=== PATIENT | male | born 1970 ===

== ENCOUNTER 2024-05-30 17:33 | Inpatient (IN) | payer OTHER ==
[~2024-05-30] VITALS: Ht 165.1 cm; Wt 90.8 kg
[2024-05-30] MEDS ORDERED: HYDROmorphone HCl/Pf 1MG SYR IV ONE ×2 (17:45→20:00)
[2024-05-30] MEDS ORDERED: NS 1,000 ML IV SCH (17:45)
[2024-05-30 18:27] LABS: International Normalized Ratio 1.17; Prothrombin Time Results 12.4 Sec (9.7-11.5)
[2024-05-30 18:46] LABS: Bilirubin, Direct 2.4 mg/dL (0.0-0.3)
[2024-05-30] MEDS ORDERED: Ciprofloxacin 400MG/D5 200ML 200 ML IV ONE (19:55)
[2024-05-30] MEDS ORDERED: MetroNIDAZOLE 500MG/NS 100 ml 100 ML IV ONE (19:55)
[2024-05-30] MEDS ORDERED: Lactated Ringer's 1,000 ML IV SCH (21:15)
[2024-05-30] MEDS ORDERED: Metoprolol Tartrate 1 MG/ML 5 ML VIAL IV ONE (23:15)
[2024-05-30] MEDS ORDERED: HydrALAZINE HCl 20 MG / ML 1ML Vial IV PRN (23:45)
[2024-05-30] MEDS ORDERED: Loperamide HCl 2 MG Cap PO PRN (23:45)
[2024-05-30] MEDS ORDERED: NS 1,000 ML IV ONE (23:45)
[2024-05-30] MEDS ORDERED: Ondansetron HCl 2 MG / ML 2ML Vial IV PRN (23:45)
[2024-05-30] MEDS ORDERED: FLU VACC TS2024-25(6MOS UP)/PF 45 MCG/0.5 ML SYRINGE IM ONE (23:50)
[2024-05-30] MEDS ORDERED: FentaNYL Citrate 50 MCG/ML 2 ML Injection IV PRN (23:50)
[2024-05-30] MEDS ORDERED: OxyCODONE HCL 5 MG TAB PO PRN (23:50)
[2024-05-31] VITALS (8 sets, daily range): BP systolic 119–162; BP diastolic 90–106
[2024-05-31] MEDS ORDERED: Enoxaparin 40 MG/0.4 ML SYR SC SCH (00:08)
[2024-05-31] MEDS ORDERED: CefTRIAXone Sodium 1,000 MG in NS 100 ML IV SCH (00:12)
[2024-05-31] MEDS ORDERED: Albumin (Human) 25gm/100ml 100 ML IV ONE (00:30)
[2024-05-31 00:33] LABS: International Normalized Ratio 1.29; Prothrombin Time Results 13.5 Sec (9.7-11.5)
[2024-05-31] MEDS ORDERED: LORazepam 2 MG/ML 1ML Injection IV PRN (00:35)
[2024-05-31] MEDS ORDERED: ChlordiazePOXIDE 25 MG Cap PO PRN (00:35)
[2024-05-31] MEDS ORDERED: MetroNIDAZOLE 500MG/NS 100 ml 100 ML IV SCH (02:00)
--- NOTE | 2024-05-31 04:00 | NUR ---
THIS IS A 53 YEAR OLD URDU SPEAKING PT ADMITTED FOR COLITITS. PT ALERT AND ORIENTED, HIS SON IS AT BEDSIDE TO ASSIST WITH TRANSLATION. PT REFUSED USE OF TRANSLATION PHONE AND WAS ABLE TO ANSWER MOST QUESTIONS WITHOUT HIS SONS HELP. PT C/O ABDOMINAL PAIN, PRN PAIN PILL GIVEN, PT HAS ELEVATED TEMP, FR. CREWS NOTIFIED AND NEW ORDER FOR TYLENOL NOTED. PTS B/P REMAINS ELEVATED. DISUSSED PARAMETERS WITH DR. CREWS, STATES TO KEEP PARAMETERS ORDERED AT THIS TIME. DR. CREWS ALSO NOTIFIED OF PTS ELEVATED HEARTRATE, STATES CONTINUE TO MONITOR. PT AND HIS SON ORIENTED TO ROOM, CALL LIGHT, BED ALARM, ETC. WILL CONTINUE TO MONITOR
[2024-05-31 04:21] LABS: Hematocrit 44.1 % (37.0-53.0); Mean Corpuscular HGB 35.5 pg (26.0-34.0); Mean Corpuscular Volume 105 fL (80-100); Mean Platelet Volume 12.6 fL (9.1-12.4); NRBC ABSOLUTE 0.02 K/mm3 (0.00-0.02); NRBC Auto 0.6 /100 WBC (0.0-0.2); RDW Coefficient Variation 14.6 % (11.7-14.2); RDW Standard Deviation 57.1 fL (35.1-46.3); Red Blood Cell Count 4.22 M/mm3 (4.30-5.90)
[2024-05-31 04:37] LABS: Albumin, Blood 2.4 g/dL (3.4-5.0); Albumin/Globulin Ratio 0.6 (0.8-1.8); Bilirubin, Total 4.4 mg/dL (0.1-1.0); Bun/Creatinine Ratio 22.3 (12.0-20.0); Creatinine, Blood 0.58 mg/dL (0.60-1.20); Globulin, Blood 4.3 g/dL (2.2-4.0); Potassium, Blood 3.5 mmol/L (3.5-5.5); Total Protein, Blood 6.7 g/dL (6.4-8.2)
[2024-05-31 04:47] LABS: Platelet Count 48 K/mm3 (150-400)
[2024-05-31] MEDS ORDERED: Acetaminophen 325 MG TABLET PO PRN (05:00)
[2024-05-31 05:10] LABS: BAND PERCENT MAN 35 % (0-8); BASOPHILS PERCENT MAN 0 % (0-2); EOSINOPHILS ABSOLUTE MAN 0.03 K/mm3 (0.00-0.68); EOSINOPHILS PERCENT MAN 1 % (0-6); LYMPHOCYTES ABSOLUTE MAN 0.17 K/mm3 (0.84-5.20); LYMPHOCYTES PERCENT MAN 5 % (21-46); METAMYELOCYTE ABSOLUTE MAN 0.17 K/mm3 (0.00-0.00); METAMYELOCYTE PERCENT MAN 5 % (0-0); MONOCYTES ABSOLUTE MAN 0.17 K/mm3 (0.16-1.47); MONOCYTES PERCENT MAN 5 % (4-13); MYELOCYTE ABSOLUTE MAN 0.17 K/mm3 (0.00-0.00); MYELOCYTE PERCENT MAN 5 % (0-0); NEUTROPHILS ABSOLUTE MAN 2.76 K/mm3 (1.96-9.15); SEG NEUTROPHILS PERCENT MAN 44 % (41-73); TOTAL CELLS COUNTED 100
--- NOTE | 2024-05-31 06:27 | NUR ---
PT REMAINS ALERT WITH NO AGITATION OR S/S OF ALCOHOL WITHDRAWEL NOTED. COVID,FLU,RSV, AND GI PANAL SENT TO LAB. PT REMAINS TACHYCARDIC. WILL CONTINUE TO MONITOR. PT STATES RELIEF FROM PAIN AFTER PAIN MED, WILL CONTINUE TO MONITOR, PTS SON REMAINS AT BEDSIDE
[2024-05-31 06:49] LABS: Influenza A, PCR NEGATIVE (NEGATIVE); Influenza B, PCR NEGATIVE (NEGATIVE); Resp Syncytial Virus, PCR NEGATIVE (NEGATIVE); SARS-Cov-2 (COVID-19) PCR, MMC NEGATIVE (NEGATIVE)
[2024-05-31] MEDS ORDERED: NS 1,000 ML IV SCH (07:45)
[2024-05-31] MEDS ORDERED: NS 1,000 ML IV ONE ×2 (07:45→13:05)
[2024-05-31 07:57] LABS: Campylobacter Sp Not Detected (NOT DETECT); Cryptosporidium Not Detected (NOT DETECT); Cyclospora Cayetanensis Not Detected (NOT DETECT); E. Coli O157 Not Detected (NOT DETECT); Enteroaggregative E. coli-EAEC Not Detected (NOT DETECT); Enteropathogenic E. coli-EPEC Not Detected (NOT DETECT); Enterotoxigenic E. coli-ETEC Not Detected (NOT DETECT); Plesiomonas Shigelloides Not Detected (NOT DETECT); Salmonella Sp Not Detected (NOT DETECT); Shiga Toxin-prod E. coli-STEC Not Detected (NOT DETECT); Shigella/Enteroin E. coli-EIEC Not Detected (NOT DETECT); Vibrio Cholerae Not Detected (NOT DETECT); Vibrio Sp Not Detected (NOT DETECT); Yersinia Enterocolitica Not Detected (NOT DETECT)
[2024-05-31 07:58] LABS: Adenovirus F 40/41 Not Detected (NOT DETECT); Astrovirus Not Detected (NOT DETECT); Entamoeba Histolytica Not Detected (NOT DETECT); Giardia Lamblia Not Detected (NOT DETECT); Norovirus GI/GII Not Detected (NOT DETECT); Rotavirus A Not Detected (NOT DETECT); Sapovirus Not Detected (NOT DETECT)
[2024-05-31] MEDS ORDERED: Polyethylene Glycol 3350 17 gm PO PRN (08:10)
[2024-05-31] MEDS ORDERED: Morphine Sulfate 4 MG/1 ML Injection IV PRN (08:10)
[2024-05-31] MEDS ORDERED: Docusate Sodium/Senna 1 Tab PO PRN (08:10)
[2024-05-31] MEDS ORDERED: HydrALAZINE HCl 20 MG / ML 1ML Vial IV PRN (08:40)
[2024-05-31] MEDS ORDERED: Losartan Potassium 25 MG Tab PO SCH (09:00)
--- NOTE | 2024-05-31 10:53 | NUR ---
AM NOTE: DR. BHAKTA PRESENT AT BEDSIDE FOR AM BEDSIDE SHIFT REPORT. PATIENT ALERT AND ORIENTED. X4. GREENLANDIC SPEAKING WITH SOME [place] ISLANDER. SENIOR BUSINESS DEVELOPMENT ANALYST PHONE AT BEDSIDE, ALTHOUGH PATIENT REFUSED TO USE. SON AT BEDSIDE WHO IS [place] ISLANDER/GREENLANDIC SPEAKING. SBA TO HELP MANAGE CORDS. PATIENT MOVING SELF IN BED. DENIES PAIN AT THIS TIME. CIWA SCORE 0 THIS AM. TELE SHOWING ST WITH HR 100-130'S. DENIES CHEST PAIN/PRESSURE/PALPITATIONS. SBP 140'S. PO LOSARTAN GIVEN THIS AM. IV FLUIDS INFUSING PER EMAR. IV ABX INFUSED. NO EDEMA NOTED. ON ROOM AIR, LUNG SOUNDS CLEAR AND DIM IN BASES. DENIES SOB/COUGH. SATING 90-94%. EVEN AND UNLABORED RESPIRATIONS. BOWEL TONES PRESENT. ABDOMIN DISTENDED AND FIRM. DENIES PAIN AT THIS TIME, BUT STATES IT COMES AND GOES. RECENTLY GIVEN PO PAIN MED FROM NOC SHIFT. NPO AT THIS TIME, PATIENT AND FAMILY EDUCATED. UP TO BATHROOM WITH SBA. EDUCATED ON INTAKE AND OUTPUT MEASUREMENTS. BOWEL MOVEMENT X1 THIS AM. URINE KAY IN COLOR. DENIES NAUSEA. COMPLAINS OF MOUTH BEING DRY. MOIST SPONGE PROVIDED FOR MOUTH. DR. BHAKTA AT BEDSIDE THIS MORNING, THIS RN PRESENT FOR MD ROUNDING. DR. BHAKTA UPDATED ON AM LACTIC RESULT AND TEMPORAL TEMP OF 100.4 VIA PHONE. PLAN FOR FLUIDS. DR. RODRIGUEZ CALLED BY THIS AM TO DISCUSS FLUIDS PER DR. BHAKTA RECOMMENDATION. FLUIDS TO CONTINUE AT 75ML/HR AT THIS TIME FOR A TOTAL OF 4 BAGS COUNTING CURRENT BAG THAT IS HUNG. BLOOD CULTURES POSITIVE X2, CALLED INTO DR. RODRIGUEZ. PLAN TO WAIT FOR SENSITIVITY AND LACTIC BLOOD DRAW AT 1200. FAMILY REMAINS AT BEDSIDE. CALL LIGHT IN REACH. IV FLUIDS INFUSING. DENIES NEEDS AT THIS TIME.
--- NOTE | 2024-05-31 12:04 | NUR ---
DR. HBAKTA BACK TO BEDSIDE, THIS RN AND FAMILY PRESENT. PATIENT RECENTLY REPORTED 3/10 ABDOMINAL PAIN AND REQUESTING PAIN PILL. MEDICATED PER EMAR. UP TO BATHROOM WITH SBA. 2 LOOSE BOWEL MOVEMENTS THIS AM, NO BLOOD OBSERVED. MINIMAL URINE OUTPUT, USING URNAL. KAY IN COLOR. AFTERNOON VITAL SIGNS STABLE WITH 100.5 TEMPORAL TEMP, HR 120'S. CIWA SCORE 0. CALL LIGHT IN REACH.
--- NOTE | 2024-05-31 13:16 | NUR ---
AFTERNOON LACTIC LAB LEVEL ELEVATED, THIS RN ON BREAK. ROLL OVER LOADER PLACED CALL TO DR. RODRIGUEZ TO UPDATE. PLAN FOR 1L NORMAL SALINE BOLUS AND CONTINUE MAINTENCE FLUID POST BOLUS. VITAL SIGNS TAKEN AGAIN. PATIENT UP IN CHAIR AT BEDSIDE. DENIES PAIN. BOLUS INFUSING AT THIS TIME. PATIENT AND FAMILY AT BEDSIDE UPDATED ON PLAN.
[2024-05-31] MEDS ORDERED: Meropenem 2,000 MG in NS 250 ML IV SCH (15:00)
--- NOTE | 2024-05-31 15:24 | NUR ---
DR. RODRIGUEZ CALLED TO UPDATE ON INTAKE/OUTPUT STATUS. PATIENT HAS ONLY HAD 250ML URINE OUTPUT SINCE ADMISSION TO PCU. STRICT OUTPUT MAINTAINED WITH HAT/URINAL USE. PATIENT COMPLIANT WITH ALLOWING STAFF TO MEASURE OUTPUT. REMAINS NPO. BLADDER SCAN DONE SHOWING 137ML IN BLADDER. PATIENT DENIES FEELING RETENTION. PLAN TO REDRAW LABS AT THIS TIME. DR. RODRIGUEZ TO PLACE ORDERS. CIWA SCORE 1 AT THIS TIME DUE TO SOME SLIGHT ANXIETY. VITAL SIGNS STABLE. TEMPORAL TEMP READING 99.4 AND HR REMAINS IN THE 120'S. FAMILY REMAINS AT BEDSIDE.
[2024-05-31 16:19] LABS: Bun/Creatinine Ratio 24.4 (12.0-20.0); Calcium, Blood 7.5 mg/dL (8.5-10.1); Creatinine, Blood 0.94 mg/dL (0.60-1.20); Potassium, Blood 3.8 mmol/L (3.5-5.5)
--- NOTE | 2024-05-31 16:54 | NUR ---
1600 LACTIC AND BMP RESULTS CALLED IN TO DR. RODRIGUEZ, NO NEW ORDERS AT THIS TIME. CONTINUE CURRENT FLUIDS. PLAN FOR LACTIC ACID LAB DRAW AT 1999.
--- NOTE | 2024-05-31 18:32 | NUR ---
SHIFT SUMMARY: PATIENT REMAINS ALERT AND ORIENTED. FAMILY REMAINS AT BEDSIDE THROUGHOUT SHIFT. CONTINUES TO DENY USE OF CONCRETE BUCKET UNLOADER PHONE THROUGHOUT SHIFT. UP WITH SBA TO BATHROOM TO HELP MANAGE CORDS. CIWA SCORES 0-1 FOR DAY SHIFT. TELE CONTINUES TO SHOW ST WITHHR 100-130'S. SBP 130'S. DENIES CHEST PAIN/PRESSURE/PALPITATIONS. BOWEL TONES PRESENT. INTERMIT ABDOMINAL PAIN RATED 2-3 THROUGHOUT SHIFT. MEDICATED X1 FOR PAIN WITH GOOD RELIEF. MULTIPLE LOOSE STOOLS GREEN/BROWN IN COLOR. NO BLOOD NOTED. MINIMAL KAY COLORED URINE, DR. RODRIGUEZ AWARE, SEE LAST NOTE. REMAINS NPO. STRICT INTAKE AND OUTPUT. NS CONTINUES TO INFUSE PER EMAR. IV ABX INFUSED. CALL LIGHT IN REACH. SITTING UP IN CHAIR AT THIS TIME.
--- NOTE | 2024-05-31 21:58 | NUR ---
SPOKE WITH DR. CREWS REGARDING CONTINUING SINUS TACH AND MOST RECENT LACTIC WHICH WAS UP FROM PREVIOUS. DISCUSSED SEVERAL OPTIONS, DR. CREWS ULTIMATELY DECIDING TO STICK WITH CURRENT PLAN OF CARE WITH NS RUNNING AND REPEAT LACTIC ORDERED WITH MORNING LABS. CONTINUING TO MONITOR.
[2024-06-01] VITALS (11 sets, daily range): BP systolic 145–178; BP diastolic 81–109
[2024-06-01 03:33] LABS: Hematocrit 43.4 % (37.0-53.0); Mean Corpuscular HGB 36.4 pg (26.0-34.0); Mean Corpuscular HGB Conc 34.6 g/dL (31.5-36.5); Mean Corpuscular Volume 105 fL (80-100); Mean Platelet Volume 12.4 fL (9.1-12.4); RDW Standard Deviation 59.1 fL (35.1-46.3); Red Blood Cell Count 4.12 M/mm3 (4.30-5.90); White Blood Cell Count 14.45 K/mm3 (4.00-11.30)
[2024-06-01 03:57] LABS: Platelet Count 43 K/mm3 (150-400)
[2024-06-01 03:59] LABS: BAND PERCENT MAN 34 % (0-8); BASOPHILS PERCENT MAN 0 % (0-2); EOSINOPHILS PERCENT MAN 0 % (0-6); LYMPHOCYTES ABSOLUTE MAN 0.72 K/mm3 (0.84-5.20); LYMPHOCYTES PERCENT MAN 5 % (21-46); METAMYELOCYTE ABSOLUTE MAN 0.72 K/mm3 (0.00-0.00); METAMYELOCYTE PERCENT MAN 5 % (0-0); MONOCYTES ABSOLUTE MAN 0.43 K/mm3 (0.16-1.47); MONOCYTES PERCENT MAN 3 % (4-13); NEUTROPHILS ABSOLUTE MAN 12.57 K/mm3 (1.96-9.15); SEG NEUTROPHILS PERCENT MAN 53 % (41-73); TOTAL CELLS COUNTED 100
[2024-06-01 04:00] LABS: Magnesium, Blood 1.3 mg/dL (1.6-2.4)
[2024-06-01 04:01] LABS: Albumin, Blood 2.3 g/dL (3.4-5.0); Albumin/Globulin Ratio 0.5 (0.8-1.8); Bilirubin, Total 4.3 mg/dL (0.1-1.0); Bun/Creatinine Ratio 32.4 (12.0-20.0); Calcium, Blood 8.2 mg/dL (8.5-10.1); Creatinine, Blood 1.11 mg/dL (0.60-1.20); Globulin, Blood 4.4 g/dL (2.2-4.0); Phosphorus, Blood 2.5 mg/dL (2.5-4.9); Potassium, Blood 3.7 mmol/L (3.5-5.5); Total Protein, Blood 6.7 g/dL (6.4-8.2)
[2024-06-01] MEDS ORDERED: Magnesium Sulf 2 GM/Water 50ML 50 ML IV SCH ×2 (04:45)
[2024-06-01] MEDS ORDERED: METF500 PO (07:50)
[2024-06-01] MEDS ORDERED: Lovastatin20 MG PO (07:50)
[2024-06-01] MEDS ORDERED: Losartan Potassium 50 MG Tab PO ONE (08:35)
--- NOTE | 2024-06-01 09:00 | NUR ---
AM NOTE: PATIENT REMAINS ALERT AND ORIENTED. FINANCIAL RETIREMENT PLAN SPECIALIST PHONE REFUSED AGAIN THIS MORNING. FAMILY REMAINS AT BEDSIDE. SBA TO HELP MANAGE CORDS. PERRLA. CIWA SCORING 1-2 DUE TO SOME ANXIETY. TELE SHOWING SINUS TACH WITH HR 100-130'S. DENIES CHEST PAIN/PRESSURE/PALPITATIONS. SBP 150-170'S. INCREASED PO LOSARTAN DOSE GIVEN THIS MORNING AND PATIENT/FAMILY EDUCATED. IV SALINE INFUSING PER EMAR WELL MAG REPLACED THIS AM AND IV ABX. NO EDEMA NOTED. ON ROOM AIR, NEEDING SOME OXYGEN DURING NOC SHIFT. SATING 94-95% ON ROOM AIR. EVEN AND UNLABORED RESPIRATIONS. LUNG SOUNDS CLEAR. DENIES SOB/COUGH. BOWEL TONES PRESENT. DENIES ABDOMINAL PAIN. ABDOMIN CONTINUES TO BE DISTENDED. LOOSE GREEN STOOLS. STRICT INTAKE AND OUTPUT. PATIENT ADVANCED TO CLEAR LIQUID DIET. USING HATS IN TOILET TO MEASURE URINE. PATIENT AND FAMILY EDUCATED ON ALL INTAKE AND OUTPUT MEASUREMENTS. DR. RODRIGUEZ TO BEDSIDE THIS AM AND THIS RN UPDATED ON BLOOD CULTURE SENSITIVITY RESULTS AT 0902. CALL LIGHT IN REACH. DENIES NEEDS AT THIS TIME. FAMILY REMAINS AT BEDSIDE.
[2024-06-01] MEDS ORDERED: CefTRIAXone Sodium 2,000 MG in NS 100 ML IV SCH (13:00)
[2024-06-01] MEDS ORDERED: AmLODIPine Besylate 5 MG Tab PO SCH (16:35)
--- NOTE | 2024-06-01 17:20 | NUR ---
DR. RODRIGUEZ CALLED TO UPDATE ON BLOOD PRESSURE. BLOOD PRESSURE READING 169/105 WITH HR 120'S. PATIENT DENIES CARDIAC SYMPTOMS. THIS RN GAVE 10MG IV HYDRALAZINE. BLOOD PRESSURE 160/97 POST 10MG IV HYDRALAZINE ADMINISTRATION. ORDERS FROM DR. RODRIGUEZ TO GIVE ADDITIONAL 10MG IV HYDRALAZINE, AMLODIPINE 10MG PO NOW AND THEN DAILY AND LACTIC ACID LAB DRAW. ORDERS. IN PLACE. ADDITIONAL 10MG IV HYDRALAZINE GIVEN AND PATIENT BLOOD PRESSURE READING 157/100. NORMAL SALINE CONTINUES TO INFUSE PER EMAR. TOLERATING PO DIET OF CLEAR LIQUIDS. DENIES ABDOMINAL PAIN. TEMPORAL TEMP 99.5. AT BEDSIDE. PENDING LACTIC ACID. CALL LIGHT IN REACH.
--- NOTE | 2024-06-01 18:14 | NUR ---
SHIFT SUMMARY: PATIENT REMAINS ALERT AND ORIENTED. CIWA SCORES 0-2 THROUGHOUT. THIS RN SCORED 2 DUE TO ANXIETY. PATIENT STATES HE IS NERVOUS AT TIMES WITH DOCTORS AND STAFF. THIS RN CONTINUED TO OFFER GAS DERRICK OPERATOR PHONE THROUHGOUT SHIFT AND PATIENT DENIED. FAMILY REMAINED AT BEDSIDE. DENIED PAIN THROUGHOUT SHIFT. UP TO BATHROOM WITH SBA TO HELP MANAGE CORDS. TELE CONTINUES TO READ SINUS TACH WITH HR 120'S. DENIES CHEST PAIN/PRESSURE/PALPITATIONS. SEE PREVIOUS NOTE REGARDING ELEVATED BLOOD PRESSURE. IV FLUIDS INFUSING PER EMAR. NO EDEMA NOTED. ON ROOM AIR SATING 90-95% WHEN AWAKE. NEEDING UP TO 2L WHEN SLEEPING. DENIES SOB/COUGH. CONTINUES TO HAVE LOOSE GREEN STOOLS THROUGHOUT SHIFT. URINE REMAINS KAY. THIS RN UPDATED DR. RODRIGUEZ ON INTAKE/OUTPUT STATUS. URINE OUTPUT IMPROVED FROM YESTERDAY SHIFT, 900ML OUTPUT THUS FAR. BLADDER SCAN COMPLETED SHOWING 148 POST VOID. DENIES ABDOMINAL PAIN/NAUSEA. ON CLEAR LIQUID DIET. PATIENT REQUESTING SUGAR FREE OPTIONS, THIS RN UPDATED CLEAR LIQUID DIET WITH SUGAR FREE MODIFICATION. FAMILY REMAINS AT BEDSIDE. CALL LIGHT IN REACH. DENIES NEEDS AT THIS TIME.
--- NOTE | 2024-06-01 19:21 | NUR ---
UPON REASSESSMENT PATIENT POINTING AT WINDOW AND SAYING "LOOK IT'S FUNNY, ANIMALS". THIS RN ASKED TO USE HIGH SCHOOL MATH TUTOR PHONE AND WAS CONNECTED WITH MOISTURE METER OPERATOR. PATIENT SAYING HE IS SEEING THE WINDOW MOVE AND THE ANIMALS DANCE AROUND IT. ASKING IF HE CAN GET UP TO GET CLOSE AND TOUCH THE ANIMALS. THIS RN PREFORMED CIWA WITH PATIENT SCORING 9. THIS RN THEN DISCUSSED ALCOHOL WITHDRAWL SYMPTOMS, SAFETY CONCERNS, BED ALARM USE, ALCOHOL WITHDRAWL MEDICATIONS, VITAL SIGNS AND FALL RISK WITH PATIENT AND USING MOISTURE METER OPERATOR PHONE. PATIENT SEEMING VERY CONFUSED CONTINUEING TO TALK ABOUT WINDOW AND DISCUSS HOW FUNNY IT LOOKS WITH THE ANIMALS. AT BEDSIDE VERBALIZES EDUCATION SURROUNDING ALCOHOL WITHDRAWL AND SAFETY CONCERNS. THIS RN MEDICATED PATIENT WITH 2MG OF ATIVAN IV. REPORTED OFF TO [facility] NURSE WASSERMAN. DAUGHTER TO COME IN AND SIT WITH PATIENT THIS EVENING. BED ALARM IN PLACE. REMAINS AT BEDSIDE.
--- NOTE | 2024-06-01 19:38 | NUR ---
ASSESSED PATIENT WITH interpretor [phone] [phone]
[2024-06-01] MEDS ORDERED: LORazepam 2 MG/ML 1ML Injection IV PRN (20:10)
--- NOTE | 2024-06-01 20:11 | NUR ---
CHARGE NOTIFIED OF CIWA, PT BEING MOVED TO ROOM CLOSER TO NURSES STATION. PROVIDER AWARE
--- NOTE | 2024-06-01 21:40 | NUR ---
TO BEDSIDE. PT PLACED ON ETCO2 AND QTC MONITORING TUNRED ON. PT BREATHING 24RR/MINUTE, ON 3LNC. ETCO2 31-35. QTC 479.
[2024-06-01] MEDS ORDERED: ChlordiazePOXIDE 25 MG Cap PO PRN ×2 (22:25)
[2024-06-01] MEDS ORDERED: Haloperidol Lactate Inj. 5 MG/ML Injection IM PRN (22:25)
[2024-06-02] MEDS ORDERED: Haloperidol Lactate Inj. 5 MG/ML Injection IV PRN (00:30)
--- NOTE | 2024-06-02 01:03 | NUR ---
SHIFT SUMMARY PT'S CIWAS HAVE BEEN HIGH 25. PT RECIEVED HALDOL FOR PERSISTENT HALLUCINATIONS ALONG WITH ATIVAN. PT NO LONGER COOPERATIVE WITH PO ADMINISTRATION. PT BECOMING MORE PARANOID SHIFT PROGRESSES AND IS TRYING TO HIDE HALLUCINATIONS. FAMILY AT BEDSIDE, PARTICIPATING IN CARE. RESPIRATIONS HAVE NOT GONE UNDER 22 BREATHS PER MINUTE SO FAR THIS SHIFT. ETCO2 AND QTC MONITORING REMAINS IN PLACE. PT REPORTS SOME ABD PAIN AND HAS HYPERACTIVE BOWEL TONES IN ALL QUADRANTS. PT REMAINS TACHYCARDIC 120'S-140'S.
[2024-06-02 03:35] VITALS: BP 108/93
[2024-06-02 04:06] LABS: Hematocrit 38.3 % (37.0-53.0); Hemoglobin 13.5 g/dL (13.5-17.5); Mean Corpuscular HGB 36.5 pg (26.0-34.0); Mean Corpuscular HGB Conc 35.2 g/dL (31.5-36.5); Mean Corpuscular Volume 104 fL (80-100); Mean Platelet Volume 12.3 fL (9.1-12.4); RDW Coefficient Variation 14.9 % (11.7-14.2); RDW Standard Deviation 57.4 fL (35.1-46.3); White Blood Cell Count 14.85 K/mm3 (4.00-11.30)
[2024-06-02 04:16] LABS: Platelet Count 49 K/mm3 (150-400)
[2024-06-02 04:29] LABS: Albumin, Blood 2.1 g/dL (3.4-5.0); Albumin/Globulin Ratio 0.5 (0.8-1.8); Bun/Creatinine Ratio 41.8 (12.0-20.0); Calcium, Blood 7.9 mg/dL (8.5-10.1); Creatinine, Blood 1.1 mg/dL (0.60-1.20); Globulin, Blood 4.2 g/dL (2.2-4.0); Magnesium, Blood 2.5 mg/dL (1.6-2.4); Phosphorus, Blood 2.8 mg/dL (2.5-4.9); Potassium, Blood 3.3 mmol/L (3.5-5.5); Total Protein, Blood 6.3 g/dL (6.4-8.2)
[2024-06-02 04:30] LABS: BAND PERCENT MAN 21 % (0-8); BASOPHILS PERCENT MAN 0 % (0-2); EOSINOPHILS PERCENT MAN 0 % (0-6); LYMPHOCYTES ABSOLUTE MAN 0.14 K/mm3 (0.84-5.20); LYMPHOCYTES PERCENT MAN 1 % (21-46); MONOCYTES ABSOLUTE MAN 1.33 K/mm3 (0.16-1.47); MONOCYTES PERCENT MAN 9 % (4-13); NEUTROPHILS ABSOLUTE MAN 13.36 K/mm3 (1.96-9.15); SEG NEUTROPHILS PERCENT MAN 69 % (41-73); TOTAL CELLS COUNTED 100
[2024-06-02] MEDS ORDERED: Potassium Chloride 40 MEQ in NS 250 ML IV ONE (06:00)
[2024-06-02 08:44] VITALS: BP 166/96
[2024-06-02] MEDS ORDERED: Furosemide 10 MG / ML 2ML Vial IV ONE (09:00)
[2024-06-02] MEDS ORDERED: Losartan Potassium 50 MG Tab PO SCH ×2 (09:00)
[2024-06-02 11:23] VITALS: BP 156/105
--- NOTE | 2024-06-02 12:18 | NUR ---
UPDATE PT ALERT AND FOLLOWING DIRECTIONS AT THIS TIME. DAUGHTER AT BEDSIDE. DAUGHTER STATES PATIENT IS COMMUNICATING BETTER THAN HE WAS THIS AM. PT MORE RELAXED AND NO LONGER RESTLESS OR PULLING AT LINES. PT ABLE TO SWALLOW WATER WITHOUT DIFFICULTY OR COUGHING. COUGH IS CLEAR WHEN ASKED TO COUGH. PT MEDICATED WITH LIBRIUM PER EMAR.
[2024-06-02 14:47] LABS: HAPTOGLOBIN <10 mg/dL (30-200)
[2024-06-02 16:05] VITALS: BP 167/96
--- NOTE | 2024-06-02 17:01 | NUR ---
SHIFT SUMMARY PT CONTINUES TO WITHDRAWAL, SEE CIWA CHARTING. FAMILY AT BEDSIDE ALL SHIFT TO HELP TRANSLATE PATIENT DOES NOT WANT TO USE HEAT SEAL OPERATOR PHONE. PT REMAINS ON 3L NC WITH SATS >90%. ETCO2 MONITORING HAS CONSISTANTLY BEEN ABOUT 30. PT HAS BEEN INCONTINENT OF URINE AND BOWEL THIS SHIFT. MALE PUREWICK DEVICE IN PLACE AND ATTENDS. WILL REPORT OFF TO ONCOMING RN
[2024-06-02 20:35] VITALS: BP 154/95
[2024-06-03] VITALS (7 sets, daily range): BP systolic 129–171; BP diastolic 87–108
--- NOTE | 2024-06-03 04:31 | NUR ---
SHIFT SUMMARY. PATIENT IS A&OX3. DAIGHTER IN AT BEDSIDE AND ABLE TO TRANSLATE FOR PATIENT. PATIENT DID UNDERSTAND SIMPLE COMMANDS AND INSTRUCTION FOR VITAL SIGNS; ORAL TEMPERATURE OBTAINED TEMPORAL READING HIGH. PATIENT WOULD LIKE A BED BATH OR PREFERABLY A SHOWER TODAY. MEDICATED WITH LIBRIUM AND ATIVAN X1 THIS SHIFT AT THIS POINT. PATIENT HAD 3 SCANT AMOUNTS OF LOOSE BM IN ATTENDS; NO S/S OF C-DIFF NOTED. PATIENTS DAUGHTER REPORTS THAT PATIENT HAD NOT REALLY ATE MUCH THE COUPLE DAYS PRIOR TO ADMISSION. PATIENT HYPERTENSIVE THIS SHIFT; PRN ANTIHYPERTENSIVE GIVEN PER ORDER. BED IS LOCKED IN THE LOWEST POSITION WITH CALL LIGHT IN REACH. DAUGHTER AT BEDSIDE T/O NIGHT. CARE IS ONGOING. BED IS LOCKED IN THE LOWEST POSITION WITH CALL LIGHT IN REACH. CARE IS ONGOING.
[2024-06-03 05:06] LABS: Hematocrit 38.8 % (37.0-53.0); Hemoglobin 13.8 g/dL (13.5-17.5); Mean Corpuscular HGB Conc 35.6 g/dL (31.5-36.5); Mean Corpuscular Volume 101 fL (80-100); Mean Platelet Volume 12.7 fL (9.1-12.4); NRBC ABSOLUTE 0.02 K/mm3 (0.00-0.02); NRBC Auto 0.2 /100 WBC (0.0-0.2); Platelet Count 53 K/mm3 (150-400); RDW Coefficient Variation 15.2 % (11.7-14.2); RDW Standard Deviation 56.6 fL (35.1-46.3); Red Blood Cell Count 3.83 M/mm3 (4.30-5.90); White Blood Cell Count 9.71 K/mm3 (4.00-11.30)
[2024-06-03 05:36] LABS: Albumin, Blood 2.1 g/dL (3.4-5.0); Albumin/Globulin Ratio 0.5 (0.8-1.8); Bilirubin, Total 3.9 mg/dL (0.1-1.0); Bun/Creatinine Ratio 52.6 (12.0-20.0); Calcium, Blood 8.2 mg/dL (8.5-10.1); Creatinine, Blood 0.82 mg/dL (0.60-1.20); Globulin, Blood 4.5 g/dL (2.2-4.0); Magnesium, Blood 2.5 mg/dL (1.6-2.4); Phosphorus, Blood 1.9 mg/dL (2.5-4.9); Potassium, Blood 3.3 mmol/L (3.5-5.5); Total Protein, Blood 6.6 g/dL (6.4-8.2)
[2024-06-03] MEDS ORDERED: Multivitamins 1 Tab PO SCH (09:00)
[2024-06-03] MEDS ORDERED: Thiamine HCl 100 MG Tab PO SCH (09:00)
--- NOTE | 2024-06-03 11:19 | NUR ---
The pt is oriented to self, family, place (hospital) but not to city/state. He says that he is in his hometown in [place]. Family is at bedside, assisting with reorientation and reassurance of the patient. His daughter and his are here now. CIWA score was 6 and he was given librium 25 mg this morning for hallucinations and mild confusion. He is calm and cooperative. He is tachypneic but denies dyspnea. No wheezing, no crackles noted on auscultation anterior and posterior chest. He is also tachycardic, rate 103-118 bpm with minimal activity in bed. Blood pressure is stable and he is no longer requiring any supplemental oxygen. Spo2 93% on room air at this time. He tolerated clear liquid diet this morning, and it has been advanced to full liquid which he has started slowly and so far is tolerating well.
--- NOTE | 2024-06-03 13:18 | NUR ---
Pt requested OOB to chair. Max 2 staff assist with gait belt. PT remains confused; chair alarm is on. Pt is very weak. His is at bedside, assisting him. Ceftriaxone is infusing IV right forearm. Febrile, 101.1 after administration of Tylenol for fever 100.8
--- NOTE | 2024-06-03 15:35 | NUR ---
The pt is alert, minimally conversant but cooperative, calm and the daughters at bedside state that he seems the best now than he has been since admission. Questions answered about plan of care and current treatment.
[2024-06-03] MEDS ORDERED: Sodium Phosphate Mono/Dibasic 250 MG Tab PO SCH (17:00)
[2024-06-04 00:27] VITALS: BP 157/104
[2024-06-04 03:57] LABS: Hematocrit 39.1 % (37.0-53.0); Hemoglobin 13.7 g/dL (13.5-17.5); Mean Corpuscular HGB 35.4 pg (26.0-34.0); Mean Corpuscular Volume 101 fL (80-100); Mean Platelet Volume 12.4 fL (9.1-12.4); Platelet Count 55 K/mm3 (150-400); RDW Coefficient Variation 15.1 % (11.7-14.2); RDW Standard Deviation 56.6 fL (35.1-46.3); Red Blood Cell Count 3.87 M/mm3 (4.30-5.90); White Blood Cell Count 9.95 K/mm3 (4.00-11.30)
[2024-06-04 04:31] LABS: Anion Gap 9 mmol/L (3-11); Blood Urea Nitrogen 42 mg/dL (8-24); Bun/Creatinine Ratio 53.2 (12.0-20.0); CO2, Blood 21 mmol/L (21-32); Calcium, Blood 7.9 mg/dL (8.5-10.1); Chloride, Blood 105 mmol/L (98-108); Creatinine, Blood 0.79 mg/dL (0.60-1.20); Glomerular Filtration Rate 106 (60-); Glucose, Blood 106 mg/dL (70-99); Potassium, Blood 3.2 mmol/L (3.5-5.5); Sodium, Blood 132 mmol/L (136-145)
[2024-06-04 04:47] VITALS: BP 136/83
--- NOTE | 2024-06-04 06:34 | NUR ---
PT MOSTLY STABLE THROUGHOUT THE SHIFT, NO LARGE EVENTS OCCURING. PT DID HAVE CIWA OF 8 AT BEGINNING OF SHIFT WHICH IMPROVED AFTER PO LIBRIUM X1. PT DOES HAVE SOME ANXIETY BUT IS CALM AND COOPERATIVE. PT HAD GOOD URINARY OUTPUT BY PUREWICK. PT ALSO HAD BMX2- LOOSE,BROWN. PT INCONTINENT TO BOTH BOWEL AND BLADDER. PT AOX2-3, OCCASSIONAL CONFUSION, POSSIBLE HALLUCINATIONS-DIFFICULT TO ASSESS D/T LANGUAGE BARRIER. PT DID HAVE FEVER AND WAS MEDICATED WITH TYLENOL WITH GOOD EFFECT. FAMILY AT BEDSIDE. PT DID REQUIRE O2 2L TO KEEP SATS ABOVE 90% WHILE SLEEPING. PT WAS ASKING ABOUT DISCHARGE AND IS WORRIED ABOUT HIS HOME AND BUSINESS D/T RECENT FLOODING. BED WAS IN LOWEST POSITION WITH UPPER SIDE RAILS UP. BRAKES AND EXIT ALARM ENGAGED.
[2024-06-04] MEDS ORDERED: Potassium Chloride 20 MEQ TabCR PO ONE (08:00)
--- NOTE | 2024-06-04 10:09 | NUR ---
PT assisted up to BSC by MONEY ROOM TELLER and assisting RNs. He was continent of stool. Purewick remains in place for urinary incontinence. CIWA score 3 at this time.
[2024-06-04 12:07] VITALS: BP 153/91
--- NOTE | 2024-06-04 13:06 | NUR ---
Pt finished working with OT. He was able to walk into the bathroom with assistance to attempt to have a BM. Now he is up in the recliner, both daughter Subha and Odalys at the bedside.
--- NOTE | 2024-06-04 13:58 | NUR ---
CASSANDRA ruth placed bilateral calves for BLE swelling.
[2024-06-04 15:20] VITALS: BP 163/102
--- NOTE | 2024-06-04 18:27 | NUR ---
Assisted patient to the recliner chair for dinner, and then to the toilet in the bathroom for small void and small BM. Purewick has been off for 2 hours and he has remained continent. He is still weak but able to ambulate with 1-2 staff members assisting, gait belt and geriwalker. He does not use the geriwalker very well.
[2024-06-04 19:51] VITALS: BP 143/88
[2024-06-05] VITALS (7 sets, daily range): BP systolic 133–151; BP diastolic 81–96
[2024-06-05 04:44] LABS: Hematocrit 38.4 % (37.0-53.0); Mean Corpuscular HGB 36.3 pg (26.0-34.0); Mean Corpuscular HGB Conc 36.5 g/dL (31.5-36.5); Mean Corpuscular Volume 100 fL (80-100); Mean Platelet Volume 12.4 fL (9.1-12.4); Platelet Count 71 K/mm3 (150-400); RDW Coefficient Variation 14.9 % (11.7-14.2); RDW Standard Deviation 54.4 fL (35.1-46.3); Red Blood Cell Count 3.86 M/mm3 (4.30-5.90)
[2024-06-05 05:01] LABS: Albumin, Blood 1.9 g/dL (3.4-5.0); Anion Gap 8 mmol/L (3-11); Blood Urea Nitrogen 40 mg/dL (8-24); Bun/Creatinine Ratio 46.3 (12.0-20.0); CO2, Blood 22 mmol/L (21-32); Calcium, Blood 7.8 mg/dL (8.5-10.1); Chloride, Blood 106 mmol/L (98-108); Creatinine, Blood 0.86 mg/dL (0.60-1.20); Glomerular Filtration Rate 103 (60-); Glucose, Blood 110 mg/dL (70-99); Magnesium, Blood 2.3 mg/dL (1.6-2.4); Phosphorus, Blood 3.3 mg/dL (2.5-4.9); Potassium, Blood 3.5 mmol/L (3.5-5.5); Sodium, Blood 132 mmol/L (136-145)
--- NOTE | 2024-06-05 06:18 | NUR ---
PT STABLE THROUGHOUT THE SHIFT. PT MENTATION IS IMPROVING AOX3, 1 ASSIST OOB TO BR WITH WALKER AND GAIT BELT. PT IS CONTINENT NOW TO BOTH BOWEL AND BLADDER. PT ON ROOM AIR, DID NOT REQUIRE SUPPLEMENTAL O2 DURING THIS SHIFT. VITAL SIGNS REMAINED STABLE EXCEPT FOR SMALL TEMP ELEVATION. CIWA 2. PT CONTINUES TO TOLERATE PO WELL. FAMILY AT BEDSIDE.
--- NOTE | 2024-06-05 08:02 | NUR ---
ASSUMPTION NOTE: THIS RN TO ASSUME CARE. BEDSIDE SHIFT REPORT WAS GIVEN AND PATIENT WAS SLEEPING AROUSABLE, HAS FAMILY AT BEDSIDE. PATIENT HAS CALL LIGHT WITHIN REACH & BED IN LOWEST POSITION. STATING NOTHING IS NEEDED AT THIS TIME WHEN ASKED.
--- NOTE | 2024-06-05 11:57 | NUR ---
TRANSFER NOTE: PATIENT WAS NOTIFIED ALONG WITH FAMILY PRIOR TO TRANSFERRING TO ROOM 328. ALL PERSONAL BELONGINGS WERE TAKEN WITH PATIENT AND WENT WITH PATIENT. WAS INTRODUCED TO NEW RN AND REPORT WAS GIVEN TO NAKUL PRIOR TO PATIENTS ARRIVAL.
--- NOTE | 2024-06-05 17:07 | NUR ---
RESUMED CARE OF PT SINCE 1399, PCU TRANSFER. PT HAS NO SOB, CHEST PAIN, OR C/O PAIN. PHONE ARTIFICIAL FLOWERS STARCHER HAS BEEN PROVIDED AND IN PT'S ROOM TO SUCCESSFULLY COMUNICATE TALK WITH THE PT.PT HAS NO QUESTIONS OR CONCERNS AT THIS TIME
[2024-06-06 02:45] VITALS: BP 133/78
--- NOTE | 2024-06-06 02:56 | NUR ---
[employer] NOTIFIED THIS RN THAT PT HAS SOME ST ELEVATION ON TELE MONITOR. VITAL SIGNS UNCHANGED. PT DENIES ANY CHEST PAIN OR DISCOMFORT/PRESSURE. PT STATES HE HAS HAD AN INCREASE IN DRY COUGH TONIGHT. DR. VALENZUELA NOTIFIED- NO NEW ORDERS RECEIVED.
--- NOTE | 2024-06-06 06:38 | NUR ---
SHIFT SUMMARY PT WITH CIWA SCORES OF 2 AND 1. DENIES ABD PAIN OR NAUSEA- STATES HE FEELS "FULL". ABD IN FIRMLY DISTENDED. AMBULATES TO BR WITH 1 ASSIST. TELE SHOWING SINUS TACH IN THE 100'S WITH BBB, [address] ELEVATION- PT ASYMPTOMATIC, SEE PRIOR NOTE. PT MOSTLY KYRGYZ SPEAKING. DAUGHTER AT BEDSIDE. BED IN LOWEST POSITION, CALL LIGHT WITHIN REACH, SIDERAILS UP X2.
[2024-06-06] MEDS ORDERED: Docusate Sodium/Senna 1 Tab PO PRN (07:40)
[2024-06-06 08:32] VITALS: BP 154/96
[2024-06-06] MEDS ORDERED: LOSA50 PO (11:12)
[2024-06-06] MEDS ORDERED: CEPH500 PO (11:13)
--- NOTE | 2024-06-06 13:09 | NUR ---
pt was discharged with instructions and this nurse faxed new medications to preffered pharm. family and pt has no questions or concerns.
== END 2024-06-06 13:05 | disposition home health service (06) | DRG 872 ==
LOC: ER 17:33 → PCU 17:36 → ERHOLD 17:36 → PCU 21:20 → ERHOLD 21:20 → ER 21:20 → PCU 21:20 → ERHOLD 05-31 02:31 → PCU 05-31 02:31 → MEDS 06-05 11:32 → ENPENDDIS 06-06 11:24 → MEDS 06-06 13:05
PROVIDERS: Emergency Medicine; Hospitalist; Internal Medicine; ADMIT Internal Medicine
PROC: 30233J1 Transfusion of Nonautologous Serum Albumin into Peripheral Vein, Percutaneous Approach (ICD-10-PCS; principal; 2024-05-31)
PROC: 3E03329 Introduction of Other Anti-infective into Peripheral Vein, Percutaneous Approach (ICD-10-PCS; 2024-05-31)
DX: A41.50 Gram-negative sepsis, unspecified (principal); K76.6 Portal hypertension; E87.20 Acidosis, unspecified; R44.3 Hallucinations, unspecified; F10.239 Alcohol dependence with withdrawal, unspecified; R65.20 Severe sepsis without septic shock; K52.9 Noninfective gastroenteritis and colitis, unspecified; D69.6 Thrombocytopenia, unspecified; A41.51 Sepsis due to Escherichia coli [E. coli]; E88.09 Other disorders of plasma-protein metabolism, not elsewhere classified; I10 Essential (primary) hypertension; F10.229 Alcohol dependence with intoxication, unspecified; K70.31 Alcoholic cirrhosis of liver with ascites; E87.6 Hypokalemia; Y90.0 Blood alcohol level of less than 20 mg/100 ml; Z88.0 Allergy status to penicillin; Z79.899 Other long term (current) drug therapy; Z79.84 Long term (current) use of oral hypoglycemic drugs; Z28.21 Immunization not carried out because of patient refusal
CPT/HCPCS: 0241U; 36415; 71046; 74177; 76705; 80048; 80053; 80069; 80320; 82140; 82248; 83010; 83605; 83615; 83690; 83735; 83880; 84100; 84145; 85025; 85027; 85610; 85651; 86141; 87040; 87077; 87186; 87507; 92610; 93005; 93010; 94762; 96361; 96365; 96366; 96367; 96368; 96375; 96376; 97110; 97116; 97162; 97165; 97530; 97535; 99285-25; A9270; G0378; J0360; J0696; J0744; J1171; J1630; J1650; J1940; J2060; J2185; J2270; J3475; J3480; J7030; J7050; J7120; P9047; Q9967

== ENCOUNTER → 2024-05-30 | Outpatient (CLI) | payer OTHER ==
[~2024-05-30] MED LIST: CEPH500 PO; LOSA50 PO; Lovastatin20 MG PO; METF500 PO
[2024-05-30 16:26] LABS: Hematocrit 43.8 % (37.0-53.0); Hemoglobin 15.5 g/dL (13.5-17.5); Mean Corpuscular HGB 36.2 pg (26.0-34.0); Mean Corpuscular HGB Conc 35.4 g/dL (31.5-36.5); Mean Corpuscular Volume 102 fL (80-100); RDW Coefficient Variation 14.6 % (11.7-14.2); RDW Standard Deviation 55.1 fL (35.1-46.3); Red Blood Cell Count 4.28 M/mm3 (4.30-5.90); White Blood Cell Count 8.84 K/mm3 (4.00-11.30)
[2024-05-30 16:36] LABS: Albumin, Blood 2.5 g/dL (3.4-5.0); Albumin/Globulin Ratio 0.5 (0.8-1.8); Bilirubin, Total 5.4 mg/dL (0.1-1.0); Bun/Creatinine Ratio 9.1 (12.0-20.0); Calcium, Blood 8.5 mg/dL (8.5-10.1); Creatinine, Blood 0.77 mg/dL (0.60-1.20); Globulin, Blood 5.5 g/dL (2.2-4.0); Potassium, Blood 3.5 mmol/L (3.5-5.5)
[2024-05-30 16:53] LABS: Mean Platelet Volume 11.8 fL (9.1-12.4); Platelet Count 68 K/mm3 (150-400)
[2024-05-30 16:55] LABS: BAND PERCENT MAN 16 % (0-8); LYMPHOCYTES ABSOLUTE MAN 0.17 K/mm3 (0.84-5.20); LYMPHOCYTES PERCENT MAN 2 % (21-46); MONOCYTES PERCENT MAN 8 % (4-13); NEUTROPHILS ABSOLUTE MAN 7.95 K/mm3 (1.96-9.15); SEG NEUTROPHILS PERCENT MAN 74 % (41-73)
== END ==
LOC: LAB 16:21 → LAB SHORT 16:21
PROVIDERS: Family Medicine
DX: R11.2 Nausea with vomiting, unspecified (principal)
CPT/HCPCS: 80053; 85025

== ENCOUNTER 2024-06-18 08:49 | Emergency (ER) | payer OTHER ==
[~2024-06-18] VITALS: Ht 165.1 cm; Wt 87.1 kg
[2024-06-18 10:16] LABS: BASOPHILS ABSOLUTE AUTO 0.11 K/mm3 (0.00-0.23); BASOPHILS PERCENT AUTO 1 % (0-2); EOSINOPHILS ABSOLUTE AUTO 0.19 K/mm3 (0.00-0.68); EOSINOPHILS PERCENT AUTO 2 % (0-6); Hematocrit 34.9 % (37.0-53.0); Hemoglobin 12.3 g/dL (13.5-17.5); IMMATURE GRAN ABSOLUTE AUTO 0.05 K/mm3 (0.00-0.10); IMMATURE GRAN PERCENT AUTO 1 % (0-1); LYMPHOCYTES ABSOLUTE AUTO 0.86 K/mm3 (0.84-5.20); LYMPHOCYTES PERCENT AUTO 10 % (21-46); MONOCYTES ABSOLUTE AUTO 0.84 K/mm3 (0.16-1.47); MONOCYTES PERCENT AUTO 10 % (4-13); Mean Corpuscular HGB 35.7 pg (26.0-34.0); Mean Corpuscular HGB Conc 35.2 g/dL (31.5-36.5); Mean Corpuscular Volume 101 fL (80-100); Mean Platelet Volume 9.9 fL (9.1-12.4); NEUTROPHILS ABSOLUTE AUTO 6.48 K/mm3 (1.96-9.15); NEUTROPHILS PERCENT AUTO 76 % (41-73); Platelet Count 201 K/mm3 (150-400); RDW Coefficient Variation 14.1 % (11.7-14.2); RDW Standard Deviation 52.7 fL (35.1-46.3); Red Blood Cell Count 3.45 M/mm3 (4.30-5.90); White Blood Cell Count 8.53 K/mm3 (4.00-11.30)
[2024-06-18 10:42] LABS: Albumin, Blood 1.9 g/dL (3.4-5.0); Albumin/Globulin Ratio 0.3 (0.8-1.8); Bilirubin, Total 2.8 mg/dL (0.1-1.0); Bun/Creatinine Ratio 19.5 (12.0-20.0); Calcium, Blood 8.7 mg/dL (8.5-10.1); Creatinine, Blood 0.67 mg/dL (0.60-1.20); Globulin, Blood 5.6 g/dL (2.2-4.0); Potassium, Blood 4.5 mmol/L (3.5-5.5); Total Protein, Blood 7.5 g/dL (6.4-8.2)
[2024-06-18 12:05] LABS: International Normalized Ratio 1.29; Prothrombin Time Results 13.5 Sec (9.7-11.5)
[2024-06-18 16:09] LABS: Automated BF WBC Count 0.534 K/mm3 (0-999)
[2024-06-18 16:25] LABS: Lactate Dehydrogenase, Body Fl 25 U/L; Protein, Body Fluid 0.9 g/dL; Triglycerides, Body Fluid 7 mg/dL
[2024-06-18 16:26] LABS: Amylase, Body Fluid 35 U/L
[2024-06-18 16:50] LABS: Body Fluid WBC Count 534 /mm3 (0-999); RBC Count, Body Fluid 88 /mm3 (0-0)
[2024-06-18 17:59] LABS: Total Cell Count, Body Fluid 100
[2024-06-18 18:03] LABS: Appearance, Body Fluid Clear (Clear); Color, Body Fluid L Yellow (None-Yellow)
[2024-06-18 18:22] VITALS: BP 153/85
== END 2024-06-18 18:23 | disposition home or self-care (01) ==
LOC: ER 08:49
PROVIDERS: Emergency Medicine; Student in an Organized Health Care Education/Training Program
DX: R18.8 Other ascites (principal); Z88.0 Allergy status to penicillin; Z79.899 Other long term (current) drug therapy; Z79.84 Long term (current) use of oral hypoglycemic drugs; I10 Essential (primary) hypertension
CPT/HCPCS: 49083; 71046; 76705; 80053; 82150; 83615; 83880; 84157; 84478; 84484; 85025; 85610; 85730; 87070; 87075; 87205; 89051; 93005; 93010; 99284-25